=== PATIENT | female | born 1990 | race Caucasian/White ===

== ENCOUNTER 2021-02-25 00:18 | Emergency (ER) | payer OTHER ==
[~2021-02-25] VITALS: Ht 162.6 cm; Wt 59.0 kg
[2021-02-25] MEDS ORDERED: TYLENOL325 M1 PO (00:31)
[2021-02-25] MEDS ORDERED: IBU600 MG PO (00:32)
[2021-02-25] MEDS ORDERED: HYDROCODON-ACE1 EAC8 PO ×2 (00:38→00:40)
[2021-02-25] MEDS ORDERED: CLEOCIN HCL300 MG PO (00:38)
[2021-02-25 00:45] VITALS: BP 132/74
== END 2021-02-25 00:45 | disposition home or self-care (01) ==
LOC: M.ERS 00:18
DX: K04.7 Periapical abscess without sinus (principal); F17.210 Nicotine dependence, cigarettes, uncomplicated

== ENCOUNTER 2021-04-13 10:54 | Emergency (ER) | payer OTHER ==
[~2021-04-13] VITALS: Ht 165.1 cm; Wt 54.4 kg
[~2021-04-13 10:54] MED LIST: CLEOCIN HCL300 MG PO; HYDROCODON-ACE1 EAC8 PO; IBU600 MG PO; TYLENOL325 M1 PO
[2021-04-13 10:59] VITALS: BP 119/81
[2021-04-13] MEDS ORDERED: CLEOCIN HCL150 MG PO (11:43)
[2021-04-13] MEDS ORDERED: NORCO5 PO ×2 (11:43→11:46)
== END 2021-04-13 12:08 | disposition home or self-care (01) ==
LOC: M.ERS 10:54
DX: K08.89 Other specified disorders of teeth and supporting structures (principal); R60.9 Edema, unspecified

== ENCOUNTER 2021-06-08 09:19 | Emergency (ER) | payer OTHER ==
[~2021-06-08] VITALS: Ht 165.1 cm; Wt 54.4 kg
[~2021-06-08 09:19] MED LIST changes: +CLEOCIN HCL150 MG PO; +NORCO5 PO
[2021-06-08] MEDS ORDERED: AUGMENTIN 875-1 EACH PO (10:11)
[2021-06-08] MEDS ORDERED: HYDROCODON-ACE1 EAC7 PO (10:11)
[2021-06-08 10:19] VITALS: BP 116/71
== END 2021-06-08 10:19 | disposition home or self-care (01) ==
LOC: M.ERS 09:19
DX: K04.7 Periapical abscess without sinus (principal)